=== PATIENT | male | born 1955 | race Caucasian/White ===

== ENCOUNTER 2016-05-28 08:34 | Outpatient (CLI) ==
[2016-05-28 09:16] LABS: BASOPHILS # (AUTO) 0.1 K/uL (0-0.2); BASOPHILS % (AUTO) 1.3 % (0.0-3.0); EOSINOPHILS # (AUTO) 0.2 K/ul (0.0-0.7); EOSINOPHILS % (AUTO) 4.4 % (0.0-7.0); HEMOGLOBIN 15.9 g/dl (14.0-18.0); IMMATURE GRANULOCYTE % (AUTO) 0.2 % (0.0-5.0); LYMPHOCYTES # (AUTO) 1.4 K/uL (0.60-3.4); LYMPHOCYTES % (AUTO) 30.3 (10.0-50.0); MEAN CORPUSCULAR HEMOGLOBIN 29.2 pg (27.0-31.0); MEAN CORPUSCULAR HGB CONC 33.8 (31.8-35.4); MEAN CORPUSCULAR VOLUME 86.4 fl (80.0-94.0); MONOCYTES # (AUTO) 0.5 K/uL (0.4-2.0); MONOCYTES % (AUTO) 9.9 (0-10); NEUTROPHILS # (AUTO) 2.5 K/ul (2.0-6.9); NEUTROPHILS % (AUTO) 53.9; PLATELET COUNT 198 10^3/uL (140-440); RED BLOOD COUNT 5.44 10^6/ul (4.70-6.10); WHITE BLOOD COUNT 4.55 K/ul (4.2-10.2)
[2016-05-28 09:47] LABS: ALBUMIN 3.7 g/dL (3.4-5.0); ALBUMIN/GLOBULIN RATIO 0.95; ANION GAP 10.6; BILIRUBIN,TOTAL 0.53 mg/dL (0.00-1.20); BUN/CREATININE RATIO 10.71; CALCIUM 9.6 mg/dL (8.2-10.2); CHOL/HDL RATIO 4.4 (4.5-6.4); CREATININE 0.84 mg/dL (0.60-1.10); POTASSIUM 4.6 mmol/L (3.5-5.1); TOTAL PROTEIN 7.6 g/dL (6.4-8.2)
[2016-05-30 11:23] LABS: PSA, FREE 0.88 ng/mL
== END 2016-05-28 08:35 | disposition home or self-care (01) ==
LOC: LAB 08:34
PROVIDERS: ATTEND Nurse Practitioner Family
DX: Z00.00 Encounter for general adult medical examination without abnormal findings (principal); Z12.5 Encounter for screening for malignant neoplasm of prostate
CPT/HCPCS: 36415; 80053; 80061; 84443; 85025

== ENCOUNTER 2016-06-05 08:45 | Outpatient (CLI) ==
[2016-06-05] MEDS ORDERED: ALBUTEROL 0.083% NEB NEB STA (09:11)
== END 2016-06-05 08:46 | disposition home or self-care (01) ==
LOC: CAR 08:45
PROVIDERS: ATTEND Nurse Practitioner Family
DX: R05 Cough (principal); Z87.09 Personal history of other diseases of the respiratory system; Z87.891 Personal history of nicotine dependence
CPT/HCPCS: 94640

== ENCOUNTER 2017-03-20 16:20 | Outpatient (CLI) | END 2017-03-20 16:21 | disposition home or self-care (01) | LOC: LAB 16:20 | PROVIDERS: ATTEND Emergency Medicine | DX: J06.9 Acute upper respiratory infection, unspecified (principal); J11.1 Influenza due to unidentified influenza virus with other respiratory manifestations | CPT/HCPCS: 87502 ==

== ENCOUNTER 2017-05-20 12:50 | Outpatient (CLI) ==
--- NOTE | 2017-05-20 14:42 | DI ---
Exam: Three x-rays of the chest. Comparison: 01/29/2012. Reason for exam: Upper respiratory infection. FINDINGS: No pneumothorax, pleural effusion, or focal consolidation. The cardiac silhouette is not enlarged. The imaged osseous structures appear grossly unremarkable without acute fracture. Impression: No acute cardiopulmonary process.
== END 2017-05-20 12:51 | disposition home or self-care (01) ==
LOC: RAD 12:50
PROVIDERS: ATTEND Emergency Medicine
DX: J06.9 Acute upper respiratory infection, unspecified (principal)

== ENCOUNTER 2018-04-30 09:19 | Outpatient (CLI) ==
--- NOTE | 2018-04-30 09:44 | DI ---
EXAM: Two views of the chest. History: Cough. Comparison: Chest radiograph 05/20/2017 Findings: Heart size is within normal limits. No focal consolidation. No appreciable pleural fluid and no pneumothorax. There is hyperinflation with increase in retrosternal clear space. Scattered areas of subsegmental atelectasis again noted. Calcified granulomas are again seen within the thorax . Impression: No acute cardiopulmonary process. Probable chronic obstructive pulmonary disease.
== END 2018-04-30 09:20 | disposition home or self-care (01) ==
LOC: RAD 09:19
PROVIDERS: ATTEND Nurse Practitioner Family
DX: R05 Cough (principal)

== ENCOUNTER 2018-05-25 08:05 | Outpatient (CLI) | END 2018-05-25 08:06 | disposition home or self-care (01) | LOC: LAB 08:05 | PROVIDERS: ATTEND Physician Assistant | DX: R97.20 Elevated prostate specific antigen [PSA] (principal) | CPT/HCPCS: 36415; 84153 ==

== ENCOUNTER 2018-07-27 08:50 | Outpatient (CLI) | END 2018-07-27 08:51 | disposition home or self-care (01) | LOC: LAB 08:50 | PROVIDERS: ATTEND Physician Assistant | DX: R97.20 Elevated prostate specific antigen [PSA] (principal); R30.0 Dysuria | CPT/HCPCS: 36415; 81001; 84153; 87086 ==